=== PATIENT | female | born 1950 | race Caucasian/White ===

== ENCOUNTER → 2017-06-02 | Outpatient (CLI) | payer BC, MEDICARE ==
[~2017-06-02] MED LIST: ASPI81TA85 PO; ESTR0.5T3 TOP; PRIL20CA9 PO
--- NOTE | 2017-06-02 16:02 | REPMRS ---
Patient History The patient states she had a clinical breast exam in 04/14 Family history of unknown cancer in father at age 80 and unknown cancer in mother at age 80. Benign stereotactic core biopsy of the right breast. Taking estrogen for 4 years. Digital Woman Screen Mammo: June 02, 2017 - Exam #: [id number] Bilateral CC and MLO view(s) were taken. Technologist: Lauren Diamond, Technologist Prior study comparison: May 26, 2016, digital woman screen mammo performed at [facility]. May 07, 2015, bilateral digital mammo screening bilat, performed at [facility]. May 04, 2014, bilateral digital mammo screening bilat, performed at [facility]. FINDINGS: There are scattered fibroglandular densities. There is a needle biopsy marker clip in the right breast. There has been no change in the appearance of the mammogram from the prior studies. There is a mild amount of scattered fibroglandular density which is fairly symmetric. There is no interval development of dominant mass, architectural distortion, or clustered microcalcification suggestive of malignancy. ASSESSMENT: BI-RADS/ACR category 1 mammogram. Negative. Recommendation Routine screening mammogram in 1 year (for women over age 40). This mammogram was interpreted with the aid of an FDA-approved computer-aided dectection system. Electronically Signed By: Terry Guevara MD 06/02/17 [id number]
== END ==
LOC: M WHC 13:11
PROVIDERS: ATTEND Physician Assistant
DX: Z12.31 Encounter for screening mammogram for malignant neoplasm of breast (principal); Z80.9 Family history of malignant neoplasm, unspecified; Z92.23 Personal history of estrogen therapy

== ENCOUNTER → 2018-06-06 | Outpatient (CLI) | payer MEDICARE, BC, OTHER | LOC: M RAD 09:14 | DX: Z12.31 Encounter for screening mammogram for malignant neoplasm of breast (principal); M54.2 Cervicalgia; E78.4 Other hyperlipidemia; K21.0 Gastro-esophageal reflux disease with esophagitis; I10 Essential (primary) hypertension; Z92.23 Personal history of estrogen therapy; Z92.89 Personal history of other medical treatment | CPT/HCPCS: 71046 ==

== ENCOUNTER → 2018-06-06 | Outpatient (CLI) | payer MEDICARE, BC, OTHER ==
[2018-06-06 10:11] LABS: BASO % 0.3 % (0.0-1.0); EOS # 0.2 10^3/uL (0.0-0.50); EOS % 3.9 % (0.0-3.0); HEMATOCRIT 40.9 % (36.0-47.0); HEMOGLOBIN 13.3 g/dl (12.0-15.5); IMMATURE GRANULOCYTE % 0.2 % (0-3.0); LYMPH # 1.4 10^3/uL (1.5-4.5); LYMPH % 21.9 % (24.0-44.0); MEAN CORPUSCULAR HEMOGLOBIN 29.6 pg (27.0-33.0); MEAN CORPUSCULAR HGB CONC 32.5 g/dl (32.0-36.5); MEAN CORPUSCULAR VOLUME 91.1 fl (80.0-96.0); MONO # 0.5 10^3/uL (0.0-0.8); MONO % 7.4 % (0.0-5.0); NEUTROPHILS # 4.1 10^3/uL (1.8-7.7); NEUTROPHILS % 66.3 % (36.0-66.0); PLATELET COUNT, AUTOMATED 334 10^3/uL (150-450); RED BLOOD COUNT 4.49 10^6/uL (4.00-5.40); RED CELL DISTRIBUTION WIDTH 12.7 % (11.5-14.5); WHITE BLOOD COUNT 6.2 10^3/uL (4.0-10.0)
[2018-06-06 10:42] LABS: ALBUMIN 4.1 GM/DL (3.2-5.2); ALBUMIN/GLOBULIN RATIO 1.14 (1.00-1.93); ALKALINE PHOSPHATASE 82 U/L (45-117); ALT/SGPT 30 U/L (12-78); ANION GAP 5 MEQ/L (8-16); AST/SGOT 14 U/L (7-37); BILIRUBIN,TOTAL 0.5 MG/DL (0.2-1.0); BLOOD UREA NITROGEN 14 MG/DL (7-18); CALCIUM LEVEL 9.4 MG/DL (8.8-10.2); CARBON DIOXIDE LEVEL 31 MEQ/L (21-32); CHLORIDE LEVEL 106 MEQ/L (98-107); CHOLESTEROL LEVEL 185 MG/DL (<200); CHOLESTEROL RISK RATIO 3.189 (<5); CREATININE FOR GFR 0.58 MG/DL (0.55-1.30); GLOMERULAR FILTRATION RATE > 60.0 (>45); GLUCOSE, FASTING 104 MG/DL (70-100); HDL CHOLESTEROL 58 MG/DL (>40); LDL CHOLESTEROL 108.6 MG/DL (<100); NON-HDL-C 127 MG/DL; POTASSIUM SERUM 4.5 MEQ/L (3.5-5.1); SODIUM LEVEL 142 MEQ/L (136-145); THYROID STIMULATING HORMONE 0.946 uIU/ML (0.358-3.740); TOTAL PROTEIN 7.7 GM/DL (6.4-8.2); TRIGLYCERIDES LEVEL 92 MG/DL (<150)
== END ==
LOC: M LAB 09:42
DX: M54.2 Cervicalgia (principal); E78.4 Other hyperlipidemia; K21.0 Gastro-esophageal reflux disease with esophagitis; I10 Essential (primary) hypertension

== ENCOUNTER → 2019-02-15 | Outpatient (REF) | payer MEDICARE, OTHER ==
[~2019-02-15] MED LIST changes: +MULTTAB25 PO; +OMEP20CA3 PO
[2019-02-15 18:03] LABS: BASO % 0.4 % (0.0-1.0); EOS # 0.3 10^3/uL (0.0-0.50); EOS % 4.2 % (0.0-3.0); HEMATOCRIT 41.1 % (36.0-47.0); HEMOGLOBIN 13.3 g/dl (12.0-15.5); LYMPH # 1.8 10^3/uL (1.5-4.5); LYMPH % 27.1 % (24.0-44.0); MEAN CORPUSCULAR HGB CONC 32.4 g/dl (32.0-36.5); MEAN CORPUSCULAR VOLUME 92.6 fl (80.0-96.0); MONO # 0.6 10^3/uL (0.0-0.8); MONO % 9.1 % (0.0-5.0); NEUTROPHILS % 58.9 % (36.0-66.0); PLATELET COUNT, AUTOMATED 351 10^3/uL (150-450); RED BLOOD COUNT 4.44 10^6/uL (4.00-5.40); WHITE BLOOD COUNT 6.7 10^3/uL (4.0-10.0)
[2019-02-15 18:05] LABS: BLOOD UREA NITROGEN 13 MG/DL (7-18); CALCIUM LEVEL 9.7 MG/DL (8.8-10.2); CARBON DIOXIDE LEVEL 31 MEQ/L (21-32); CHLORIDE LEVEL 107 MEQ/L (98-107); CREATININE FOR GFR 0.64 MG/DL (0.55-1.30); GLOMERULAR FILTRATION RATE > 60.0 (>45); GLUCOSE, FASTING 110 MG/DL (70-100); POTASSIUM SERUM 5.1 MEQ/L (3.5-5.1); SODIUM LEVEL 142 MEQ/L (136-145)
[2019-02-17 11:41] LABS: HEPATITIS C VIRUS ABY INDEX 0.1 INDEX (<0.8)
== END ==
LOC: M LAB REF 16:18
PROVIDERS: ATTEND Family Medicine
DX: Z00.00 Encounter for general adult medical examination without abnormal findings (principal); K21.9 Gastro-esophageal reflux disease without esophagitis; I44.0 Atrioventricular block, first degree; K44.9 Diaphragmatic hernia without obstruction or gangrene

== ENCOUNTER 2019-02-23 12:47 | Day surgery (SDC) | payer MEDICARE, BC, OTHER ==
[~2019-02-23] VITALS: Ht 154.9 cm; Wt 77.1 kg
[~2019-02-23 12:47] MED LIST changes: +BALANCED SALT IRRIGATION SOLUTION 500ML BAG (FOR OR EYE MACHINE) As Ordered ONE; +CEFUROXIME 1MG/0.1ML INTRACAMERAL INJ As Ordered ONE; +DUOVISC (0.50ML VISCOAT/0.55ML PROVISC) OPHTH KIT As Ordered ONE; +LIDOCAINE 0.75%/EPINEPHRINE 0.025% IN BSS 1ML SYR INTRACAMERAL (OR ONLY) As Ordered ONE; +OFLOXACIN 0.3 % (OCUFLOX) OPTH SOL 5ML OS ONE; +PHENYLEPHRINE 2.5% OPHTH SOL 2ML OS ONE; +POVIDONE-IODINE 5% OPHTH PREP SOL 30ML As Ordered ONE; +PROPARACAINE 0.5% OPHTH SOL 15ML OS ONE; +TROPICAMIDE 1% OPHTH SOLN 2ML OS ONE
[2019-02-23] MEDS ORDERED: MIDAZOLAM INJ 2 MG/2 ML VIAL (J2250) As Ordered ONE (13:07)
[2019-02-23] MEDS ORDERED: fentaNYL 100 MCG/2 ML INJECTION (J3010) As Ordered ONE (13:07)
[2019-02-23] MEDS ORDERED: ONDANSETRON 4MG/2ML VIAL (J2405) As Ordered ONE (13:37)
[2019-02-23] MEDS ORDERED: ONDANSETRON 4MG/2ML VIAL (J2405) IV ONE (13:45)
[2019-02-23] MEDS ORDERED: DUOVISC (0.50ML VISCOAT/0.55ML PROVISC) OPHTH KIT As Ordered ONE (14:22)
[2019-02-23 15:35] VITALS: BP 131/57
--- NOTE | 2019-02-24 16:23 | RO ---
DATE OF PROCEDURE: 02/23/2019 PREOPERATIVE DIAGNOSIS: 1. Visually significant nuclear sclerotic cataract left eye. POSTOPERATIVE DIAGNOSIS: 1. Visually significant nuclear sclerotic cataract left eye. PROCEDURE: 1. Cataract extraction with use of phacoemulsification and placement of intraocular lens, AU00T0, 12.5 D, left eye. SURGEON: Bruce Hobbs DO SAMPLE TAILOR: None. ANESTHESIA: Local with monitored anesthesia care (MAC). COMPLICATIONS: None. POSTOPERATIVE CONDITION: Stable. INDICATIONS FOR SURGERY: 1. Blurred vision affecting patients activities of daily living. DESCRIPTION OF PROCEDURE: The patient was seen in the preoperative area and properly identified. The correct operative eye was identified and marked. The patient received topical anesthetic, antibiotics, and topical dilating drops. The patient was then transferred to the operating room. The correct side was re-identified, and a time-out was performed. The eye was prepped and draped in a sterile fashion. The eyelids were isolated with Tegaderm tape, and the lids were held open with an adjustable speculum. A 1.0 mm paracentesis incision was made. Intraocular preservative-free Shugarcaine was then injected into the anterior chamber. Viscoelastic was then injected into the anterior chamber through the paracentesis. Using a 2.4 mm sharp-tipped keratome, the anterior chamber was entered via a temporal clear cornea incision. A continuous curvilinear capsulorrhexis was created with Utrata forceps. Hydrodissection was performed with balanced salt solution (BSS) on a blunt cannula until the nucleus was able to rotate freely. The crystalline lens was phacoemulsified and aspirated. Irrigation/aspiration was used to remove the cortical material. Cohesive viscoelastic was placed into the capsular bag to deepen it. The implant was placed into the capsular bag and allowed to unfold. Placement was confirmed by visualizing the anterior capsulorrhexis. Irrigation/aspiration was used to remove the viscoelastic. The clear corneal incision was hydrated with BSS on a blunt cannula. The lens was well positioned. The incisions were then tested for leaks and found to be negative. The eye was then palpated for appropriate pressure and adjusted accordingly with BSS. The eyelid speculum was then carefully removed. A shield was placed over the eye. The patient tolerated the procedure well and was discharged to the recovery unit in a stable condition. FLETCHER
== END 2019-02-23 15:56 | disposition home or self-care (01) ==
LOC: M SDC 12:47
PROVIDERS: ATTEND Ophthalmology
DX: H25.12 Age-related nuclear cataract, left eye (principal); K21.9 Gastro-esophageal reflux disease without esophagitis; Z88.2 Allergy status to sulfonamides; Z79.899 Other long term (current) drug therapy
CPT/HCPCS: 66984; J2250; J3010; V2632

== ENCOUNTER → 2019-11-07 | Outpatient (REF) | payer MEDICARE, OTHER ==
[~2019-11-07] MED LIST changes: -BALANCED SALT IRRIGATION SOLUTION 500ML BAG (FOR OR EYE MACHINE) As Ordered ONE; -CEFUROXIME 1MG/0.1ML INTRACAMERAL INJ As Ordered ONE; -DUOVISC (0.50ML VISCOAT/0.55ML PROVISC) OPHTH KIT As Ordered ONE; -LIDOCAINE 0.75%/EPINEPHRINE 0.025% IN BSS 1ML SYR INTRACAMERAL (OR ONLY) As Ordered ONE; -OFLOXACIN 0.3 % (OCUFLOX) OPTH SOL 5ML OS ONE; +OMEP-172 PO; -OMEP20CA3 PO; -PHENYLEPHRINE 2.5% OPHTH SOL 2ML OS ONE; -POVIDONE-IODINE 5% OPHTH PREP SOL 30ML As Ordered ONE; -PROPARACAINE 0.5% OPHTH SOL 15ML OS ONE; -TROPICAMIDE 1% OPHTH SOLN 2ML OS ONE
[2019-11-07 13:14] LABS: APPEARANCE, URINE CLEAR (CLEAR); BACTERIA, URINE AUTO 1+ (NEGATIVE); BILIRUBIN, URINE AUTO NEGATIVE (NEGATIVE); BLOOD, URINE BLOOD NEGATIVE (NEGATIVE); COLOR, URINE STRAW (YELLOW); GLUCOSE, URINE (UA) AUTO NEGATIVE (NEGATIVE); KETONE, URINE AUTO NEGATIVE (NEGATIVE); LEUKOCYTE ESTERASE, URINE AUTO NEGATIVE (NEGATIVE); NITRITE, URINE AUTO NEGATIVE (NEGATIVE); PROTEIN, URINE AUTO NEGATIVE (NEGATIVE); RBC, URINE AUTO 0 /HPF (0-3); SPECIFIC GRAVITY URINE AUTO 1.004 (1.002-1.035); SQUAMOUS EPITHELIAL CELL UR AU 0 /HPF (0-6); UROBILINOGEN, URINE AUTO 0.2 mg/dL (0.0-2.0); WBC, URINE AUTO 0 /HPF (0-3)
== END ==
LOC: M SMT 13:02
PROVIDERS: ATTEND Nurse Practitioner Women's Health
DX: N28.89 Other specified disorders of kidney and ureter (principal)
CPT/HCPCS: 81001; 87086; 88108; G0463

== ENCOUNTER → 2019-11-13 | Outpatient (CLI) | payer MEDICARE, BC, OTHER ==
[~2019-11-13] MED LIST changes: +ISOVUE-370 76% 100ML VIAL (Q9967) As Ordered ONE
--- NOTE | 2019-11-14 07:34 | REP ---
CT ABDOMEN AND PELVIS WITH AND WITHOUT IV CONTRAST: CT abdomen and pelvis was performed. CT abdomen was performed without IV contrast. Multiphase post-IV contrast sequences are obtained following the intravenous administration of 100 mL of Isovue-370. Sagittal and coronal reconstruction images are performed. Visualized lung bases demonstrate no significant abnormality. The liver demonstrates no mass. Multiple subcentimeter gall stones are seen in the gallbladder without evidence of gallbladder wall thickening. There is a small hiatal hernia. The spleen is normal in size with no intrinsic abnormality. No mass is seen of either adrenal gland nor of the pancreas. The left kidney is unremarkable. There is a mass in the upper right kidney approximately 4.5 cm in diameter demonstrating heterogenous enhancement. No renal calcifications are seen and there is no hydroureteronephrosis bilaterally. There is no abdominal aortic aneurysm and there is no adenopathy. There is no free air or free fluid Scattered diverticula are seen of the colon without acute diverticulitis. No bowel thickening is seen. No pelvic mass is seen. Urinary bladder is not well distended and not optimally evaluated. No bone lesion is visualized. There are degenerative changes of the spine. IMPRESSION: Mass upper pole right kidney 4.5 cm in diameter. No adenopathy is seen. No other evidence of suspicious mass. Small hiatal hernia. Multiple gallstones in the gallbladder. Scattered diverticula of the colon. Electronically Signed by Jon Coronado MD 11/14/2019 03:59 P
== END ==
LOC: M RAD 15:58
PROVIDERS: ATTEND Nurse Practitioner Women's Health
DX: N28.89 Other specified disorders of kidney and ureter (principal)
CPT/HCPCS: 74178; Q9967

== ENCOUNTER 2020-01-18 05:53 | Inpatient (IN) | payer MEDICARE, BC, OTHER ==
[2020-01-18] VITALS (8 sets, daily range): BP systolic 125–142; BP diastolic 57–73
[~2020-01-18] VITALS: Ht 154.9 cm; Wt 70.7 kg
[~2020-01-18 05:53] MED LIST changes: +CARA1TAB6 PO; +ESTR1CRE VA; -ISOVUE-370 76% 100ML VIAL (Q9967) As Ordered ONE; +LISI-542 PO; -OMEP-172 PO; +OMEP1CAP73 PO
[2020-01-18] MEDS ORDERED: ceFAZolin SOD 2 GM in IV 1 EA IV ONE (06:00)
[2020-01-18] MEDS ORDERED: LR 1,000 ML IV ONE (06:00)
[2020-01-18] MEDS ORDERED: BUPIVACAINE HCL 0.25% 30 ML VIAL As Ordered ONE (07:13)
[2020-01-18] MEDS ORDERED: LIDOCAINE 1% MDV 20ML VIAL As Ordered ONE (07:13)
[2020-01-18] MEDS ORDERED: propofoL 200 MG/20 ML VIAL As Ordered ONE (07:15)
[2020-01-18] MEDS ORDERED: ROCURONIUM BROMIDE 50 MG/5 ML VIAL As Ordered ONE ×2 (07:15→08:23)
[2020-01-18] MEDS ORDERED: ONDANSETRON 4MG/2ML VIAL (J2405) As Ordered ONE (07:15)
[2020-01-18] MEDS ORDERED: dexameTHASONE 4 MG/ML 1ML VIAL (J1100) As Ordered ONE (07:15)
[2020-01-18] MEDS ORDERED: LIDOCAINE 2% INJ 100 MG/5 ML SDV (FOR ANES.) As Ordered ONE (07:15)
[2020-01-18] MEDS ORDERED: fentaNYL 250 MCG/5 ML INJECTION (J3010) As Ordered ONE (07:16)
[2020-01-18] MEDS ORDERED: MIDAZOLAM INJ 2 MG/2 ML VIAL (J2250) As Ordered ONE (07:16)
[2020-01-18] MEDS ORDERED: SCOPOLAMINE 1MG TRANSDERMAL PATCH As Ordered ONE (07:23)
[2020-01-18] MEDS ORDERED: SCOPOLAMINE 1MG TRANSDERMAL PATCH TOP ONE (07:30)
[2020-01-18] MEDS ORDERED: ONDANSETRON 4MG/2ML VIAL (J2405) IV PRN ×2 (07:45→13:00)
[2020-01-18] MEDS ORDERED: ACETAMINOPHEN TAB 650MG DOSE (2X325MG) PO PRN (07:45)
[2020-01-18] MEDS ORDERED: MORPHINE 2 MG/ML 1ML VIAL (J2270) IV PRN (07:45)
[2020-01-18] MEDS ORDERED: PERCOCET 5MG/325MG TAB PO PRN ×2 (07:45→13:00)
[2020-01-18] MEDS ORDERED: METOCLOPRAMIDE INJ 10MG/2ML VIAL (J2765) As Ordered ONE (08:06)
[2020-01-18] MEDS ORDERED: LACRILUBE (AKWA TEARS) OPHTH OINT 3.5 GM As Ordered ONE (08:08)
[2020-01-18] MEDS ORDERED: SUGAMMADEX SODIUM 500 MG/5 ML VIAL (BRIDION) As Ordered ONE (08:19)
[2020-01-18] MEDS ORDERED: ACETAMINOPHEN 1000MG 100ML IV BTL (OFIRMEV) (J0131 PER 10MG) As Ordered ONE (08:20)
[2020-01-18] MEDS ORDERED: MANNITOL 25% 12.5 GM/50 ML VIAL (J2150) As Ordered ONE (08:29)
[2020-01-18] MEDS ORDERED: LABETALOL HCL 100 MG/20 ML VIAL As Ordered ONE (08:33)
[2020-01-18] MEDS ORDERED: KETAMINE HCL 200 MG/20 ML VIAL As Ordered ONE (09:30)
[2020-01-18] MEDS ORDERED: ePHEDrine SULFATE 25 MG/5 ML(5MG/ML) SYRINGE As Ordered ONE (10:43)
[2020-01-18] MEDS ORDERED: PHENYLephrine HCL 500 MCG/5 ML (100MCG/ML) SYRINGE (J2370) As Ordered ONE ×2 (10:43→12:16)
[2020-01-18] MEDS ORDERED: ceFAZolin 2 GM/D5W 50 ML IV BAG (J0690 PER 500MG) As Ordered ONE (12:22)
[2020-01-18] MEDS ORDERED: MEPERIDINE INJ 25 MG/ML VIAL (J2175) IV PRN (13:00)
[2020-01-18] MEDS ORDERED: METOCLOPRAMIDE INJ 10MG/2ML VIAL (J2765) IV PRN (13:00)
[2020-01-18] MEDS ORDERED: LR 1,000 ML IV SCH (13:00)
[2020-01-18] MEDS ORDERED: fentaNYL 100 MCG/2 ML INJECTION (J3010) IV PRN (13:00)
--- NOTE | 2020-01-18 13:42 | ROOPDOC ---
[facility] Report Of Operation Report of Operation DATE OF PROCEDURE: 01/18/20 PREPROCEDURE DIAGNOSES: Right Renal Neoplasm. POSTPROCEDURE DIAGNOSES: Right Renal Neoplasm. PROCEDURE: Right Robotic-assisted Laparoscopic Partial Nephrectomy with Intraoperative Ultrasound for Tumor Mapping. SURGEON: Rach Castillo MD EVENT DECORATOR: Casie Alexander NP ANESTHESIA: General OPERATIVE INDICATIONS: This is a 69 year old female with an approximately 5cm enhancing solid right renal neoplasm concerning for malignancy. She was brought to the operating room today for treatment. DESCRIPTION OF PROCEDURE: The patient was brought to the operating room and general anesthesia was induced. Prophylactic antibiotics were infused. A Pearson catheter was placed under sterile conditions. The patient was then placed in the left lateral decubitus position. All pressure points were appropriately padded and an axillary roll was placed. She was secured to the table with tape. The patient was then prepped and draped in the usual sterile fashion. The initial incision was for an 8mm port in line with the 11th rib along the lateral rectus margin. A Veress needle was then utilized to achieve the pneumoperitoneum. An 8mm port was then placed in through this incision and through which the camera was inserted. There were no injuries from Veress needle placement or initial trocar placement. The remaining ports were then placed under vision. The right hand robotic port was placed along the costal margin in line with the camera port. A 5 mm port was placed just inferior to the xyphoid for access for a liver retractor. Two left robotic ports were placed with one just inferior to the camera port, and the other between the anterior-superior iliac spine and the umbilicus. A 12mm dietary assistant port was placed in between the camera port and the more cephalad left hand robotic port. The robot was then docked. We started by lifting up the liver with a laparoscopic locking Allis clamp. Next the right colon was dissected off of Gerota's fascia. We then Kocherized the duodenum. At this point the inferior vena cava (IVC) was identified. A plane was made onto the lateral aspect of the IVC and this was carried cephalad until the right renal vein was encountered. This was carefully dissected and just inferior to the renal vein, 1 of the 2 right renal arteries was identified. This was carefully dissected. The other melissa al artery was identified a little more inferior and it was also carefully dissected. Next I had our superintendent recreation administer 12.5g of mannitol. Gerota's fascia was then opened and I defatted the kidney. On the upper and posterior aspect of the kidney the tumor was seen. It was partly exophytic. The tumor was then mobilized to aid in accessing the tumor. Ultrasound was then utilized to thony the boundaries of the mass. Next 2 bulldog clamps were placed on the larger renal artery and 1 bulldog clamp was placed on the smaller one. I then began resecting the mass. The mass was resected completely and it appeared that we had a good margin. Once the mass was removed, the renorrhaphy was performed first by ligating all vessels in the base of resection with a 2-0 vicryl suture using figure of eight stitches. The capsule of the kidney was then reapproximated using 0-vicryl suture with Weck clips to cinch down the suture. Once this was done the clamps were removed and hemostasis was excellent. The warm ischemia time was 39 minutes. Next Mary was applied to the resection bed and the tumor was placed in an endocatch bag. A Conrad Muse drain was positioned just medial to the kidney. The liver retractor was then removed and the robot was undocked after confirming hemostasis within the abdomen. The dietary assistant port was then extended at the skin level and then at the fascia. The specimen was then removed in the endocatch bag. The fascia was then closed with a running #0 Vicryl suture. At this point, the abdomen was reinsufflated and we looked back in with the camera and there was no bleeding. At this point, all the incisions were thoroughly irrigated. We then closed the skin of each site using a running #4-0 subcuticular Monocryl stitch. The Conrad Muse drain was secured to the skin using #3-0 Ethilon suture. Local anesthetic was then applied to each incision and Dermabond was then applied and this marked the conclusion of the procedure. The patient was then taken out of the left lateral decubitus position, awakened from anesthesia and transported to the recovery room in stable condition. ESTIMATED BLOOD LOSS: 200mL INTRAOPERATIVE COMPLICATIONS: None SPECIMENS: Right renal neoplasm WARM ISCHEMIA TIME: 39 minutes NORMAL RIGHT RENAL PARENCHYMA SPARED: 90% PLAN: The patient will be admitted to the hospital postoperatively and she will be discharged home once her renal function is stable and she is tolerating a regular diet. RACH CASTILLO MDb 20, 2020 13:42
[2020-01-18] MEDS: PERCOCET 5MG/325MG TAB PO PRN ×3 (14:30→20:27)
[2020-01-18 14:34] LABS: HEMOGLOBIN 12.8 g/dl (12.0-15.5); MEAN CORPUSCULAR HEMOGLOBIN 30.3 pg (27.0-33.0); MEAN CORPUSCULAR HGB CONC 32.8 g/dl (32.0-36.5); MEAN CORPUSCULAR VOLUME 92.2 fl (80.0-96.0); PLATELET COUNT, AUTOMATED 282 10^3/uL (150-450); RED BLOOD COUNT 4.23 10^6/uL (4.00-5.40); WHITE BLOOD COUNT 16.7 10^3/uL (4.0-10.0)
[2020-01-18 14:57] LABS: BLOOD UREA NITROGEN 14 MG/DL (7-18); CALCIUM LEVEL 8.3 MG/DL (8.8-10.2); CARBON DIOXIDE LEVEL 26 MEQ/L (21-32); CHLORIDE LEVEL 107 MEQ/L (98-107); CREATININE FOR GFR 0.79 MG/DL (0.55-1.30); GLOMERULAR FILTRATION RATE > 60.0 (>39); GLUCOSE, FASTING 210 MG/DL (70-100); POTASSIUM SERUM 3.3 MEQ/L (3.5-5.1); SODIUM LEVEL 140 MEQ/L (136-145)
--- NOTE | 2020-01-18 16:30 | CR.PDOC ---
General Date of Consultation: Jan 18, 2020 Consultation REASON FOR CONSULTATION/CHIEF COMPLAINT: Bradycardia HISTORY OF PRESENT ILLNESS: Patient 69 years old female with past medical history of right nephrectomy, hypertension, acid reflux was admitted to the hospital for right nephrectomy secondary to right renal mass. During anesthesia patient developed elevated blood pressure 180/90, patient was given labetalol 5 mg IV 2 times, blood pressure dropped to 130/80, heart rate decreased to 48- 50 bpm. In the recovery room patient was complaining on the epigastric discomfort. She denied chest pain, palpitations, fever, chills. During my interview patient's heart rate was around 75-80, patient was normotensive. ALLERGIES: Please see below. HOME MEDICATIONS: Please see below. PAST MEDICAL HISTORY: Hypertension, Acid reflux PAST SURGICAL HISTORY: Right nephrectomy, appendectomy, ovarian cyst, hysterectomy, cataract surgery FAMILY HISTORY: Family history significant for multiple myeloma, Alzheimer's diseases, diabetes SOCIAL HISTORY: Tobacco use: Denied ETOH: Denied Illicit drug use: Denied IV drug use: Denied REVIEW OF SYSTEMS: 10 point review system negative except as above PHYSICAL EXAMINATION: VITAL SIGNS: Please see below. GENERAL APPEARANCE: Well-nourished, well-developed, not in apparent distress HEENT: Normocephalic, atraumatic. Mucous members moist and pink CARDIOVASCULAR: Regular rate and rhythm. No murmurs, rubs or gallops. Radial pulses are intact. There is no lower extremity edema LUNGS: Diminished lung sounds ABDOMEN: Abdomen is soft, tender in the right part of the abdomen, no rigidity MUSCULOSKELETAL: Range of motion is intact in all 4 extremities NEUROLOGICAL: Cranial nerves II-12 are grossly intact. Speech is not dysarthric LABORATORY DATA: Please see below. ASSESSMENT/PLAN: Patient 69 years old female with past medical history of right nephrectomy, hypertension, acid reflux was admitted to the hospital for right nephrectomy secondary to right renal mass. During anesthesia patient developed elevated blood pressure 180/90, patient was given labetalol 5 mg IV 2 times, blood pressure dropped to 130/80, heart rate decreased to 48- 50 bpm. In the recovery room patient was complaining on the epigastric discomfort. She denied chest pain, palpitations, fever, chills. Bradycardia Most likely secondary to labetalol which patient received during anesthesia Will check echo given history of aortic stenosis We will check troponin Status post nephrectomy Follows by urology team Acid reflux PPI Hypertension Continue home meds Vital Signs/I&O Vital Signs Date Time Temp Pulse Resp B/P (MAP) Pulse Ox O2 Delivery O2 Flow Rate FiO2 01/18/20 16:00 16 01/18/20 15:30 74 131/61 (84) 100 Nasal Cannula 2 01/18/20 13:51 96.3 Laboratory Data Labs 24H Laboratory Tests 2 01/18/20 14:20: Nucleated Red Blood Cells % (auto) 0.0, Anion Gap 7L, Glomerular Filtration Rate > 60.0, Calcium Level 8.3L CBC/BMP Laboratory Tests 01/18/20 14:20 Allergies Coded Allergies: Sulfa (Sulfonamide Antibiotics) (Verified Allergy, Unknown, 01/18/20) Home Medications Scheduled Estradiol (Estrace) 42.5 Gm Cream.appl, 0.1 MG VA 2xweek, (Reported) Lisinopril (Lisinopril) 5 Mg Tablet, 5 MG PO DAILY, (Reported) Omeprazole (Omeprazole) 20 Mg Cap, 20 MG PO DAILY, (Reported) Sucralfate (Carafate) 1 Gm Tablet, 1 GM PO BID, #40 (Reported) 4 times per day take on an empty stomach CATHERINE KEENE DO Jan 18, 2020 16:30
[2020-01-18] MEDS: SUCRALFATE 1 GM TAB PO SCH ×2 (16:49→19:18)
[2020-01-18] MEDS: DOCUSATE SODIUM 100 MG CAP PO SCH ×2 (16:49→20:26)
[2020-01-18] MEDS: NS 1,000 ML IV SCH (17:40)
[2020-01-18] MEDS: ceFAZolin SOD 1 GM in D5W MINI-BAG PLUS 50 ML IV SCH ×2 (17:40→23:08)
[2020-01-18] MEDS: lisinopriL 5 MG TAB PO SCH (20:27)
--- NOTE | 2020-01-18 22:30 | ECGEPIP ---
[facility] Test Date: 2020-01-18 Pat Name: DYLON CEVALLOS Department: Room: - Gender: Female Bilingual Medical Assistant: GONSALO : 1950 Requested By: Osmani Talley Order Number: [id number] Reading MD: Ousmane Lee Measurements Intervals [place] Rate: 51 P: 61 NV: 197 QRS: 10 QRSD: 98 T: 0 QT: 456 QTc: 420 Interpretive Statements SINUS BRADYCARDIA WITH SINUS ARRHYTHMIA Nonspecific ST-T abnormalities. Electronically Signed on 01-18-2020 22:30:35 EST by Ousmane Lee
[2020-01-19] VITALS (8 sets, daily range): BP systolic 100–130; BP diastolic 37–72; O2SAT 98
[2020-01-19 07:24] LABS: HEMATOCRIT 31.9 % (36.0-47.0); MEAN CORPUSCULAR HEMOGLOBIN 30.1 pg (27.0-33.0); MEAN CORPUSCULAR HGB CONC 32.6 g/dl (32.0-36.5); MEAN CORPUSCULAR VOLUME 92.2 fl (80.0-96.0); PLATELET COUNT, AUTOMATED 291 10^3/uL (150-450); RED BLOOD COUNT 3.46 10^6/uL (4.00-5.40); WHITE BLOOD COUNT 14.9 10^3/uL (4.0-10.0)
[2020-01-19] MEDS: NS 1,000 ML IV SCH (07:27)
[2020-01-19 07:30] LABS: HEMOGLOBIN 10.4 g/dl (12.0-15.5)
[2020-01-19 07:55] LABS: BLOOD UREA NITROGEN 14 MG/DL (7-18); CALCIUM LEVEL 8.2 MG/DL (8.8-10.2); CARBON DIOXIDE LEVEL 28 MEQ/L (21-32); CHLORIDE LEVEL 107 MEQ/L (98-107); CREATININE FOR GFR 0.72 MG/DL (0.55-1.30); GLOMERULAR FILTRATION RATE > 60.0 (>39); GLUCOSE, FASTING 115 MG/DL (70-100); POTASSIUM SERUM 3.6 MEQ/L (3.5-5.1); SODIUM LEVEL 138 MEQ/L (136-145)
--- NOTE | 2020-01-19 07:55 | IPNPDOC ---
Subjective Review oF Systems Chief Complaint The patient is a 69-year-old female admitted with a reason for visit of Renal Mass. Events since Last Encounter No acute events o/n. Good pain control. No n/v. No chest pain or SOB. No f/c/ns. Objective Physical Examination General Exam: Alert, Cooperative, No Acute Distress ABDOMEN EXAM: Soft, Tenderness (mild), Other (incisions clean/dry/intact; LUCIUS w/ serosang output) Neuro Exam: Normal Speech Psych Exam: Mental status NL, Mood NL Other physical findings catheter draining clear urine Vital Signs/I&O Vital Signs Date Time Temp Pulse Resp B/P (MAP) Pulse Ox O2 Delivery O2 Flow Rate FiO2 01/19/20 06:00 97.6 63 18 100/37 (58) 93 Room Air 01/18/20 17:30 2.0 I&O- Last 24 Hours up to 6 AM 01/19/20 06:00 Intake Total 3022 ml Output Total 2305 ml Balance 717 ml Laboratory Data Labs 24H Laboratory Tests 2 01/18/20 14:20: Nucleated Red Blood Cells % (auto) 0.0, Anion Gap 7L, Glomerular Filtration Rate > 60.0, Calcium Level 8.3L 01/18/20 17:15: Troponin I < 0.02 01/19/20 07:00: Nucleated Red Blood Cells % (auto) 0.0 CBC/BMP Laboratory Tests 01/18/20 14:20 01/19/20 07:00 Assessment/Plan Date Seen The patient was seen on 01/19/20. Patient Summary This is a 69 y/o F POD1 s/p R robotic partial nephrectomy. Hb 10.4. BMP still pending. Patient became bradycardic in the PACU yesterday. Hospitalist service is following for this. All vitals since she has been on the regular nursing floor have been stable. Good UOP. Plan/VTE VTE Prophylaxis Ordered?: Yes VTE Exclusion Mechanical Proph: N/A:VTE Prophy Ordered Plan/Urinary Catheter Urinary Catheter: D/C Pearson Plan - d/c Pearson - percocet prn pain - d/c IVF - strict I/Os - SCDs when in bed - ambulate w/ assistance - appreciate hospitalist service following for brachycardia in PACU - advance diet as tolerated - will likely need to stay at least one more day for cardiac monitoring and to watch her Hb as it dropped some from postop RACH CASTILLO MD Jan 19, 2020 07:55
[2020-01-19] MEDS: DOCUSATE SODIUM 100 MG CAP PO SCH ×2 (09:12→21:45)
[2020-01-19] MEDS: SUCRALFATE 1 GM TAB PO SCH ×2 (09:12→18:52)
[2020-01-19] MEDS: OMEPRAZOLE 20 MG CAP PO SCH (09:12)
--- NOTE | 2020-01-19 13:03 | IPNPDOC ---
Text Note Date of Service The patient was seen on 01/19/20. NOTE Subjective: No any acute events overnight. No any arrhythmia on telemetry. Ivan jeromeeddy denied any chest pain, palpitations, shortness of breath, diarrhea. Objective: VITAL SIGNS: Please see below. GENERAL APPEARANCE: Well-nourished, well-developed, not in apparent distress HEENT: Normocephalic, atraumatic. Mucous members moist and pink CARDIOVASCULAR: Regular rate and rhythm. No murmurs, rubs or gallops. Radial pulses are intact. There is no lower extremity edema LUNGS: Diminished lung sounds ABDOMEN: Abdomen is soft, tender in the right part of the abdomen, no rigidity MUSCULOSKELETAL: Range of motion is intact in all 4 extremities NEUROLOGICAL: Cranial nerves II-12 are grossly intact. Speech is not dysarthric ASSESSMENT/PLAN: Patient 69 years old female with past medical history of right nephrectomy, hypertension, acid reflux was admitted to the hospital for right nephrectomy secondary to right renal mass. During anesthesia patient developed elevated blood pressure 180/90, patient was given labetalol 5 mg IV 2 times, blood pressure dropped to 130/80, heart rate decreased to 48- 50 bpm. In the recovery room patient was complaining on the epigastric discomfort. She denied chest pain, palpitations, fever, chills. Bradycardia Resolved Most likely secondary to labetalol which patient received during anesthesia echo pending Troponin negative Repeated EKG showed no any acute ischemic changes Status post nephrectomy Follows by urology team Alex ORTEZ, I+O VSAlex I+O Laboratory Tests 01/18/20 14:20 01/19/20 07:00 Vital Signs Date Time Temp Pulse Resp B/P (MAP) Pulse Ox O2 Delivery O2 Flow Rate FiO2 01/19/20 11:53 98.1 61 18 119/62 (81) 97 Room Air 01/18/20 17:30 2.0 I&O- Last 24 Hours up to 6 AM 01/19/20 06:00 Intake Total 3022 ml Output Total 2305 ml Balance 717 ml CATHERINE KEENE DO Jan 19, 2020 13:03
[2020-01-19] MEDS ORDERED: DOCU100C16 PO (15:43)
[2020-01-19] MEDS ORDERED: PERCOCET PO (15:43)
[2020-01-19 16:13] LABS: HEMATOCRIT 32.8 % (36.0-47.0); HEMOGLOBIN 10.7 g/dl (12.0-15.5); MEAN CORPUSCULAR HEMOGLOBIN 30.3 pg (27.0-33.0); MEAN CORPUSCULAR HGB CONC 32.6 g/dl (32.0-36.5); MEAN CORPUSCULAR VOLUME 92.9 fl (80.0-96.0); PLATELET COUNT, AUTOMATED 287 10^3/uL (150-450); RED BLOOD COUNT 3.53 10^6/uL (4.00-5.40); WHITE BLOOD COUNT 13.4 10^3/uL (4.0-10.0)
[2020-01-19] MEDS: PERCOCET 5MG/325MG TAB PO PRN (18:53)
[2020-01-19] MEDS: lisinopriL 5 MG TAB PO SCH (21:47)
[2020-01-20] VITALS (10 sets, daily range): BP systolic 106–176; BP diastolic 64–96; O2SAT 94–96
[2020-01-20 06:53] LABS: HEMATOCRIT 35.4 % (36.0-47.0); HEMOGLOBIN 11.7 g/dl (12.0-15.5); MEAN CORPUSCULAR HEMOGLOBIN 30.5 pg (27.0-33.0); MEAN CORPUSCULAR HGB CONC 33.1 g/dl (32.0-36.5); MEAN CORPUSCULAR VOLUME 92.2 fl (80.0-96.0); PLATELET COUNT, AUTOMATED 298 10^3/uL (150-450); RED BLOOD COUNT 3.84 10^6/uL (4.00-5.40); WHITE BLOOD COUNT 16.6 10^3/uL (4.0-10.0)
[2020-01-20 07:17] LABS: BLOOD UREA NITROGEN 12 MG/DL (7-18); CALCIUM LEVEL 8.5 MG/DL (8.8-10.2); CARBON DIOXIDE LEVEL 28 MEQ/L (21-32); CHLORIDE LEVEL 108 MEQ/L (98-107); CREATININE FOR GFR 0.59 MG/DL (0.55-1.30); GLOMERULAR FILTRATION RATE > 60.0 (>39); GLUCOSE, FASTING 120 MG/DL (70-100); POTASSIUM SERUM 3.8 MEQ/L (3.5-5.1); SODIUM LEVEL 141 MEQ/L (136-145)
[2020-01-20] MEDS: SUCRALFATE 1 GM TAB PO SCH ×2 (07:30→17:59)
--- NOTE | 2020-01-20 09:19 | IPNPDOC ---
Subjective Review oF Systems Chief Complaint The patient is a 69-year-old female admitted with a reason for visit of Renal Mass. Events since Last Encounter The patient has vomited twice overnight. Presently she is feeling some better but is not hungry Tmax overnight was 100.8 LUCIUS drain output not measured yet this am, has large amount of bloody fluid in bulb LUCIUS drain last two days was 230cc and 120 cc, not yet ready to remove it Exam: alert female in bed in no distress Abd is soft not distended, not tender. Objective Physical Examination General Exam: Alert, Cooperative, No Acute Distress ABDOMEN EXAM: Soft, Other (incisions clean/dry/intact; LUCIUS w/ serosang output); No: Tenderness (mild) Neuro Exam: Normal Speech Psych Exam: Mental status NL, Mood NL Vital Signs/I&O Vital Signs Date Time Temp Pulse Resp B/P (MAP) Pulse Ox O2 Delivery O2 Flow Rate FiO2 01/20/20 06:00 99.5 93 19 176/89 (118) 94 Room Air 01/18/20 17:30 2.0 I&O- Last 24 Hours up to 6 AM 01/20/20 06:00 Intake Total 1315 ml Output Total 1170 ml Balance 145 ml Laboratory Data Labs 24H Laboratory Tests 2 01/19/20 15:58: Nucleated Red Blood Cells % (auto) 0.0 01/20/20 06:11: Nucleated Red Blood Cells % (auto) 0.0, Anion Gap 5L, Glomerular Filtration Rate > 60.0, Calcium Level 8.5L CBC/BMP Laboratory Tests 01/19/20 15:58 01/20/20 06:11 Assessment/Plan Date Seen The patient was seen on 01/20/20. Plan/VTE VTE Prophylaxis Ordered?: Yes VTE Exclusion Mechanical Proph: N/A:VTE Prophy Ordered Plan/Urinary Catheter Urinary Catheter: D/C Pearson Plan 1. Check LUCIUS output 2. Check CBC 3. Will observe today, possibly discharge later this afternoon MARYANNE MORRIS MD Jan 20, 2020 09:19
[2020-01-20] MEDS: OMEPRAZOLE 20 MG CAP PO SCH (09:28)
[2020-01-20] MEDS: DOCUSATE SODIUM 100 MG CAP PO SCH ×2 (09:28→20:38)
[2020-01-20] MEDS ORDERED: PROMETHAZINE INJ 25 MG/ML VIAL (J2550) IV ONE (14:00)
--- NOTE | 2020-01-20 14:10 | ECHO ---
DATE OF PROCEDURE: 01/19/2020 DATE OF : 1950 AGE: 69 REFERRING PROVIDER: Dr. Miguel A Rosario PATIENT LOCATION: Room 4214 REASON FOR THE ECHOCARDIOGRAM: Abnormal electrocardiogram (EKG). 2D MEASUREMENTS: IVS: 1.0 cm LV: 3.4 cm LVPW: 1.0 cm LA: 3.6 cm Aorta: 2.8 cm RV: 2.9 cm IVC: 1.7 cm DOPPLER MEASUREMENTS: Peak velocity across the aortic valve: 1.6 m/s Peak velocity across the LVOT: 1.1 m/s Peak gradient across the aortic valve: 10 mmHg Mean gradient across the aortic valve: 5 mmHg Mitral E: 0.74, Mitral A: 0.99 with a ratio of 0.7 Maximum tricuspid valve velocity: 2.2 m/s 2D COMMENTS: 1. Normal left ventricular size, wall thickness and normal global left ventricular systolic function. The estimated left ventricular systolic ejection fraction is 65-70%. 2. Normal left atrium. Normal right atrium and right ventricle. 3. The atrial septum appeared to be normal without evidence of defect or shunt. 4. Normal aortic root. 5. Small pericardial effusion was noted, no evidence of cardiac tamponade. 6. Moderately calcified aortic valve with normal leaflet excursion. Mildly calcified mitral annulus with normal appearing mitral valve leaflet motion. Normal tricuspid valve and pulmonic valve. The proximal pulmonary artery branches all appeared to be normal. 7. The inferior vena cava was normal in size. Central venous pressure is most likely normal. DOPPLER: It detects trace to mild aortic regurgitation. The calculated pulmonary artery systolic pressure was normal. IMPRESSION: 1. Normal global left ventricular systolic function. There are features of left ventricular diastolic dysfunction manifested by abnormal relaxation, grade 1. 2. Aortic valve sclerosis with trivial aortic stenosis but no aortic regurgitation. 3. Mitral annulus calcification. 4. Trace to mild tricuspid regurgitation with a normal calculated pulmonary artery systolic pressure. 5. Small pericardial effusion was noted. No evidence of cardiac tamponade. [facility]
[2020-01-20] MEDS: lisinopriL 5 MG TAB PO SCH (20:53)
--- NOTE | 2020-01-20 22:13 | REPVR ---
PROCEDURE INFORMATION: Exam: XR Chest, 2 Views Exam date and time: 01/20/2020 10:00 PM Age: 69 years old Clinical indication: Fever; Additional info: Fevers TECHNIQUE: Imaging protocol: XR of the chest Views: 2 views. COMPARISON: CR Chest, 2 view PA, Lat 06/06/2018 10:04 AM FINDINGS: Lungs: Atelectasis left lower lobe. Pleural space: Unremarkable. No pleural effusion. No pneumothorax. Heart/Mediastinum: Unremarkable. No cardiomegaly. Bones/joints: Unremarkable. Soft tissues: Subcutaneous air demonstrated in the right axillary and supraclavicular fossa region. Other findings: Pneumoperitoneum with air demonstrated beneath the right hemidiaphragm. IMPRESSION: 1. Pneumoperitoneum with air demonstrated beneath the right hemidiaphragm. 2. Subcutaneous air demonstrated in the right axillary and supraclavicular fossa region. Electronically signed by: Yaw Nava On 01/20/2020 22:12:45 PM
--- NOTE | 2020-01-20 22:40 | IPNPDOC ---
Text Note Date of Service The patient was seen on 01/20/20. NOTE I was called to assess Ms. Valderrama for increased nausea and fatigue. She is s/p robotic right partial nephrectomy. She says that she continues to be nauseated, but denies abdominal pain. She has not has very good PO intake since her surgery due to nausea. She denies abdominal pain, but does have a dry cough. On physical exam, she is mildly tachycardic in the low 100s, and her lung sounds are clear. There is borgborygmi heard in her abdomen and her belly is nontender. Plan: Lactic acid not elevated. CXR shows some air under the diaphragm on the right, which is the site of her surgery. This is not uncommon because the surgery was robotic. If she develops abdominal pain, may CT her AB/Pelvis without contrast. Blood cultures x2. UA with UC. Empiric coverage with Unasyn. Added Reglan for nausea. Zofran barely helps and she hallucinated with phenergan. VS,Fishbone, I+O VS, Fishbone, I+O Laboratory Tests 01/20/20 06:11 Vital Signs Date Time Temp Pulse Resp B/P (MAP) Pulse Ox O2 Delivery O2 Flow Rate FiO2 01/20/20 20:53 102/61 01/20/20 18:00 99.3 115 22 96 Room Air 01/18/20 17:30 2.0 I&O- Last 24 Hours up to 6 AM 01/20/20 06:00 Intake Total 1315 ml Output Total 1170 ml Balance 145 ml GME ATTESTATION GME ATTESTATION My faculty preceptor for this patient encounter was physically present during the encounter and was fully available. All aspects of the patient interview, examination, medical decision making process, and medical care plan development were reviewed and approved by the faculty preceptor. The faculty preceptor is aware and concurs with the plan as stated in the body of this note and will attest to such by his/her cosignature. ATTENDING NOTE I have interviewed and examined the patient at the bedside, and agree with the physical findings, assessment, and management plan as documented above. DAVE YUSUF D.O. Jan 20, 2020 22:40 GABBY CORTEZ MD Jan 21, 2020 20:16
[2020-01-20] MEDS ORDERED: METOCLOPRAMIDE INJ 10MG/2ML VIAL (J2765) IV PRN (22:45)
[2020-01-20] MEDS ORDERED: NS 1,000 ML IV ONE (23:00)
[2020-01-20] MEDS: AMPICILLIN SOD/SULBACTAM SOD 3 GM in D5W MINI-BAG PLUS 100 ML IV SCH (23:15)
[2020-01-21 02:00] VITALS: BP 130/68
[2020-01-21] MEDS: AMPICILLIN SOD/SULBACTAM SOD 3 GM in D5W MINI-BAG PLUS 100 ML IV SCH ×4 (04:32→22:31)
[2020-01-21 06:00] VITALS: BP 131/66
[2020-01-21 06:59] LABS: HEMATOCRIT 32.9 % (36.0-47.0); HEMOGLOBIN 10.5 g/dl (12.0-15.5); MEAN CORPUSCULAR HEMOGLOBIN 29.7 pg (27.0-33.0); MEAN CORPUSCULAR HGB CONC 31.9 g/dl (32.0-36.5); MEAN CORPUSCULAR VOLUME 92.9 fl (80.0-96.0); PLATELET COUNT, AUTOMATED 279 10^3/uL (150-450); RED BLOOD COUNT 3.54 10^6/uL (4.00-5.40); WHITE BLOOD COUNT 12.8 10^3/uL (4.0-10.0)
[2020-01-21 07:24] LABS: BLOOD UREA NITROGEN 16 MG/DL (7-18); CALCIUM LEVEL 7.8 MG/DL (8.8-10.2); CARBON DIOXIDE LEVEL 27 MEQ/L (21-32); CHLORIDE LEVEL 108 MEQ/L (98-107); CREATININE FOR GFR 0.61 MG/DL (0.55-1.30); GLOMERULAR FILTRATION RATE > 60.0 (>39); GLUCOSE, FASTING 100 MG/DL (70-100); POTASSIUM SERUM 3.5 MEQ/L (3.5-5.1); SODIUM LEVEL 140 MEQ/L (136-145)
[2020-01-21] MEDS: OMEPRAZOLE 20 MG CAP PO SCH (08:31)
[2020-01-21] MEDS: SUCRALFATE 1 GM TAB PO SCH ×2 (08:31→17:51)
--- NOTE | 2020-01-21 08:57 | IPNPDOC ---
Subjective Review oF Systems Chief Complaint The patient is a 69-year-old female admitted with a reason for visit of Renal Mass. Events since Last Encounter Yesterday the patient had nausea and vomiting without relief from Zofran. She was given a dose of Phenergan and had changes in mental status. She was seen in consultation and evaluated by the hospitalist. She is presently feeling better and only experiences nausea after she takes po. Vital signs this am reveal Temp 99.3, Puluse is 75, BP is 131/66. LUCIUS output last 24 hours is 190 cc AM labs: hgb/hct is 10.5/32.9 WBC is 12, 800 creatinine is 0.61, BUN is 16. Objective Physical Examination General Exam: Alert, Cooperative, No Acute Distress ABDOMEN EXAM: Soft, Other (incisions clean/dry/intact; LUCIUS w/ serosang output); No: Tenderness (mild), Mass Neuro Exam: Normal Speech Psych Exam: Mental status NL, Mood NL Vital Signs/I&O Vital Signs Date Time Temp Pulse Resp B/P (MAP) Pulse Ox O2 Delivery O2 Flow Rate FiO2 01/21/20 06:00 99.3 75 18 131/66 (87) 94 Room Air 01/18/20 17:30 2.0 I&O- Last 24 Hours up to 6 AM 01/21/20 06:00 Intake Total 1980 ml Output Total 590 ml Balance 1390 ml Laboratory Data Labs 24H Laboratory Tests 2 01/20/20 20:48: Lactic Acid Level 1.2 01/21/20 06:27: Nucleated Red Blood Cells % (auto) 0.0, Anion Gap 5L, Glomerular Filtration Rate > 60.0, Calcium Level 7.8L CBC/BMP Laboratory Tests 01/21/20 06:27 Microbiology Microbiology 01/20/20 Blood Culture, Received Pending 01/20/20 Blood Culture, Received Pending Assessment/Plan Date Seen The patient was seen on 01/21/20. Patient Summary Impression: 1. Post op day 3 robotic partial nephrectomy, complicated by nausea and vomiting 2. Adverse reaction to phenergan 3. Large LUCIUS drain output Plan/VTE VTE Prophylaxis Ordered?: Yes VTE Exclusion Mechanical Proph: N/A:VTE Prophy Ordered Plan/Urinary Catheter Urinary Catheter: D/C Pearson Plan 1. Evaluation by hospitalist greatly appreciated 2. Will continue observation today 3. Will not remove LUCIUS drain yet in view of large output 4. Will consider performing CT scan if she fails to progress 5. I discussed the plan with the patient MARYANNE MORRIS MD Jan 21, 2020 08:57
[2020-01-21] MEDS: DOCUSATE SODIUM 100 MG CAP PO SCH ×2 (09:00→21:00)
[2020-01-21 10:00] VITALS: BP 138/79
[2020-01-21 18:00] VITALS: BP 121/85
[2020-01-21] MEDS: lisinopriL 5 MG TAB PO SCH (21:14)
[2020-01-21 21:53] VITALS: BP 130/66
[2020-01-21 23:07] VITALS: O2SAT 96
[2020-01-22] VITALS (7 sets, daily range): BP systolic 130–143; BP diastolic 67–87
[2020-01-22] MEDS: AMPICILLIN SOD/SULBACTAM SOD 3 GM in D5W MINI-BAG PLUS 100 ML IV SCH (04:59)
[2020-01-22 06:30] LABS: HEMATOCRIT 32.6 % (36.0-47.0); HEMOGLOBIN 10.9 g/dl (12.0-15.5); MEAN CORPUSCULAR HEMOGLOBIN 30.4 pg (27.0-33.0); MEAN CORPUSCULAR HGB CONC 33.4 g/dl (32.0-36.5); MEAN CORPUSCULAR VOLUME 90.8 fl (80.0-96.0); PLATELET COUNT, AUTOMATED 323 10^3/uL (150-450); RED BLOOD COUNT 3.59 10^6/uL (4.00-5.40); WHITE BLOOD COUNT 12.8 10^3/uL (4.0-10.0)
[2020-01-22 06:59] LABS: BLOOD UREA NITROGEN 13 MG/DL (7-18); CALCIUM LEVEL 8.7 MG/DL (8.8-10.2); CARBON DIOXIDE LEVEL 27 MEQ/L (21-32); CHLORIDE LEVEL 106 MEQ/L (98-107); CREATININE FOR GFR 0.63 MG/DL (0.55-1.30); GLOMERULAR FILTRATION RATE > 60.0 (>39); GLUCOSE, FASTING 114 MG/DL (70-100); POTASSIUM SERUM 3.3 MEQ/L (3.5-5.1); SODIUM LEVEL 138 MEQ/L (136-145)
--- NOTE | 2020-01-22 07:38 | IPNPDOC ---
Subjective Review oF Systems Chief Complaint The patient is a 69-year-old female admitted with a reason for visit of Renal Mass. Events since Last Encounter No acute events o/n. Patient notes nausea is improved. Still having diarrhea. Notes poor appetite. Minimal abdominal pain. No f/c/ns. Objective Physical Examination General Exam: Alert, Cooperative, No Acute Distress ABDOMEN EXAM: Soft, Other (incisions clean/dry/intact; LUCIUS w/ serosang output); No: Tenderness (mild), Mass Skin Exam: Nl turgor and temperature Neuro Exam: Normal Speech Psych Exam: Mental status NL, Mood NL Vital Signs/I&O Vital Signs Date Time Temp Pulse Resp B/P (MAP) Pulse Ox O2 Delivery O2 Flow Rate FiO2 01/22/20 06:00 98.0 86 18 130/68 (88) 94 Room Air 01/18/20 17:30 2.0 I&O- Last 24 Hours up to 6 AM 01/22/20 05:59 Intake Total 1270 ml Output Total 730 ml Balance 540 ml Laboratory Data Labs 24H Laboratory Tests 2 01/22/20 06:11: Nucleated Red Blood Cells % (auto) 0.0, Anion Gap 5L, Glomerular Filtration Rate > 60.0, Calcium Level 8.7L CBC/BMP Laboratory Tests 01/22/20 06:11 Microbiology Microbiology 01/20/20 Blood Culture - Preliminary, Resulted No growth after 24 hours . All specim... 01/20/20 Blood Culture - Preliminary, Resulted No growth after 24 hours . All specim... Assessment/Plan Date Seen The patient was seen on 01/22/20. Patient Summary This is a 69 y/o F POD4 s/p R robotic partial nephrectomy. Postop course complicated by nausea/vomiting (improved) and persistent diarrhea. No fevers. No abd pain. Orders placed to check for C dif. Unasyn stopped. Her LUCIUS output has been relatively high. Will send fluid off for Cr. Plan/VTE VTE Prophylaxis Ordered?: Yes VTE Exclusion Mechanical Proph: N/A:VTE Prophy Ordered Plan - send stool for C dif - check LUCIUS fluid Cr - stop unasyn - percocet prn pain - ambulate - SCDs when in bed - NPO for now in case LUCIUS Cr is high - patient may need to have a ureteral stent placed RACH CASTILLO MD Jan 22, 2020 07:37
[2020-01-22] MEDS ORDERED: KCL 40MEQ IN D5/0.45NS 1000ML 1,000 ML IV SCH (08:00)
[2020-01-22] MEDS: DOCUSATE SODIUM 100 MG CAP PO SCH ×2 (08:20→20:49)
[2020-01-22] MEDS: OMEPRAZOLE 20 MG CAP PO SCH (08:26)
[2020-01-22] MEDS: SUCRALFATE 1 GM TAB PO SCH ×2 (08:26→17:02)
[2020-01-22 09:33] LABS: CREATININE BF 0.5 MG/DL (NOT ESTABLISHED); SOURCE, BODY FLUID CREATININE PERITONEAL
[2020-01-22 09:41] LABS: CLOSTRIDIUM DIFFICILE PCR NEGATIVE (NEGATIVE)
--- NOTE | 2020-01-22 16:49 | IPNPDOC ---
Text Note Date of Service The patient was seen on 01/22/20. NOTE Subjective: Urology contacted us again to evaluate this patient who is status post robotic partial nephrectomy and is currently having increased drainage from the LUCIUS drain along with that. Continues to have persistent diarrhea. Objective: GENERAL APPEARANCE: Well-nourished, well-developed, not in apparent distress HEENT: Normocephalic, atraumatic. Mucous members moist and pink CARDIOVASCULAR: Regular rate and rhythm. No murmurs, rubs or gallops. Radial pulses are intact. There is no lower extremity edema LUNGS: Diminished lung sounds ABDOMEN: Abdomen is soft, tender in the right part of the abdomen, no rigidity, JVD and is in place MUSCULOSKELETAL: Range of motion is intact in all 4 extremities NEUROLOGICAL: Cranial nerves II-12 are grossly intact. Speech is not dysarthric ASSESSMENT/PLAN: Patient 69 years old female with past medical history of right nephrectomy, hypertension, acid reflux was admitted to the hospital for right nephrectomy secondary to right renal mass and is status post post operative day 4. Initially we were consulted for bradycardia, which is likely related to labetalol. This time, they have increased output was for persistent diarrhea. C. difficile was sent, and this diarrhea could have been because of antibiotics for which the antibiotics have been stopped today. 1. Renal mass, status post partial nephrectomy. Management as per neurology 2. Diarrhea. This could be likely secondary to antibiotic associated diarrhea. We will start the patient on some probiotics. C. difficile also has been ordered. We will continue to follow, and if required. C. difficile PCR will be sent as well. Fecal leukocytes and ova and parasites will be sent also. 3. High output from the LUCIUS drain. Follow up with urology. They have sent back to new creatinine today to rule out any urinary leak. Rest, activity, pain control and diet as per urology The hospitalist team will continue to follow VS,Fishbone, I+O VS, Fishbone, I+O Laboratory Tests 01/22/20 06:11 Vital Signs Date Time Temp Pulse Resp B/P (MAP) Pulse Ox O2 Delivery O2 Flow Rate FiO2 01/22/20 14:00 99.1 80 18 136/85 (102) 97 Room Air 01/18/20 17:30 2.0 I&O- Last 24 Hours up to 6 AM 01/22/20 05:59 Intake Total 1270 ml Output Total 730 ml Balance 540 ml SAMANTHA KHANNA MD Jan 22, 2020 16:49
[2020-01-22] MEDS: LACTOBACILLUS ACIDOPHILUS CAP (BACID) PO SCH (17:02)
[2020-01-22] MEDS: lisinopriL 5 MG TAB PO SCH (20:49)
[2020-01-23 02:00] VITALS: BP 139/69
[2020-01-23 06:00] VITALS: BP 138/71
[2020-01-23 06:38] LABS: HEMATOCRIT 29.8 % (36.0-47.0); HEMOGLOBIN 9.9 g/dl (12.0-15.5); MEAN CORPUSCULAR HEMOGLOBIN 30.1 pg (27.0-33.0); MEAN CORPUSCULAR HGB CONC 33.2 g/dl (32.0-36.5); MEAN CORPUSCULAR VOLUME 90.6 fl (80.0-96.0); PLATELET COUNT, AUTOMATED 313 10^3/uL (150-450); RED BLOOD COUNT 3.29 10^6/uL (4.00-5.40); WHITE BLOOD COUNT 9.5 10^3/uL (4.0-10.0)
[2020-01-23 06:53] LABS: BLOOD UREA NITROGEN 10 MG/DL (7-18); CALCIUM LEVEL 8.3 MG/DL (8.8-10.2); CARBON DIOXIDE LEVEL 26 MEQ/L (21-32); CHLORIDE LEVEL 107 MEQ/L (98-107); CREATININE FOR GFR 0.54 MG/DL (0.55-1.30); GLOMERULAR FILTRATION RATE > 60.0 (>39); GLUCOSE, FASTING 105 MG/DL (70-100); POTASSIUM SERUM 3.2 MEQ/L (3.5-5.1); SODIUM LEVEL 140 MEQ/L (136-145)
[2020-01-23] MEDS: DOCUSATE SODIUM 100 MG CAP PO SCH (07:40)
[2020-01-23] MEDS: SUCRALFATE 1 GM TAB PO SCH (07:58)
[2020-01-23] MEDS: LACTOBACILLUS ACIDOPHILUS CAP (BACID) PO SCH (07:59)
[2020-01-23] MEDS: OMEPRAZOLE 20 MG CAP PO SCH (07:59)
[2020-01-23] MEDS ORDERED: POTASSIUM CHLORIDE 10 MEQ SR TABLET PO ONE ×2 (08:00→10:00)
--- NOTE | 2020-01-23 09:25 | IPNPDOC ---
Subjective Review oF Systems Chief Complaint The patient is a 69-year-old female admitted with a reason for visit of Renal Mass. Events since Last Encounter No acute events o/n. Patient notes that she feels a little better. Her a ppetite is a little better. Having mild nausea, but no emesis yesterday. She had 6 bms yesterday. She noted that the last one was more formed. Has minimal pain. No f/c/ns. Objective Physical Examination General Exam: Alert, Cooperative, No Acute Distress ABDOMEN EXAM: Soft, Other (incisions clean/dry/intact; LUCIUS w/ serous output) Skin Exam: Nl turgor and temperature Neuro Exam: Normal Speech Psych Exam: Mental status NL, Mood NL Vital Signs/I&O Vital Signs Date Time Temp Pulse Resp B/P (MAP) Pulse Ox O2 Delivery O2 Flow Rate FiO2 01/23/20 06:00 99.3 75 16 138/71 (93) 6 Room Air 01/18/20 17:30 2.0 I&O- Last 24 Hours up to 6 AM 01/23/20 05:59 Intake Total 2370 ml Output Total 2685 ml Balance -315 ml Laboratory Data Labs 24H Laboratory Tests 2 01/22/20 23:47: 01/23/20 06:21: Nucleated Red Blood Cells % (auto) 0.0, Anion Gap 7L, Glomerular Filtration Rate > 60.0, Calcium Level 8.3L CBC/BMP Laboratory Tests 01/23/20 06:21 Microbiology Microbiology 01/22/20 Stool Lactoferrin - Final, Complete 01/20/20 Blood Culture - Preliminary, Resulted No Growth after 48 hours. All Specime... 01/20/20 Blood Culture - Preliminary, Resulted No Growth after 48 hours. All Specime... Assessment/Plan Date Seen The patient was seen on 01/23/20. Patient Summary This is a 69 y/o F POD 5 s/p R robotic partial nephrectomy. Her Cr and Hb are stable. The LUCIUS Cr from yesterday was consistent w/ serum, ruling out a urine leak. We will remove the LUCIUS today. She is still having a lot of diarrhea. The hospitalist group is evaluating her for this. Plan/VTE VTE Prophylaxis Ordered?: Yes VTE Exclusion Mechanical Proph: N/A:VTE Prophy Ordered Plan - appreciate hospitalist service for evaluation and tx for diarrhea - d/c LUCIUS drain - cont home meds - tylenol prn pain - strict I/Os - encourage PO intake - regular diet - ok for discharge home once diarrhea improved or patient cleared from hospitalist service RACH CASTILLO MD Jan 23, 2020 09:25
--- NOTE | 2020-01-23 10:45 | IPNPDOC ---
Text Note Date of Service The patient was seen on 01/23/20. NOTE Subjective: He has seen and examined this morning. The drain was taken out this morning and she states she is feeling better Objective: GENERAL APPEARANCE: Well-nourished, well-developed, not in apparent distress HEENT: Normocephalic, atraumatic. Mucous members moist and pink CARDIOVASCULAR: Regular rate and rhythm. No murmurs, rubs or gallops. Radial pulses are intact. There is no lower extremity edema LUNGS: Diminished lung sounds ABDOMEN: Abdomen is soft, non-tender no rigidity MUSCULOSKELETAL: Range of motion is intact in all 4 extremities NEUROLOGICAL: Cranial nerves II-12 are grossly intact. Speech is not dysarthric ASSESSMENT/PLAN: Patient 69 years old female with past medical history of right nephrectomy, hypertension, acid reflux was admitted to the hospital for right nephrectomy secondary to right renal mass and is status post post operative day 5. Initially we were consulted for bradycardia, which is likely related to labetalol. We will again contacted as the patient was having persistent diarrhea. C. difficile was sent and came out to be negative, and this diarrhea could have been because of antibiotics for which the antibiotics were stopped. She was also started on probiotics 1. Renal mass, status post partial nephrectomy. Management as per urology 2. Diarrhea. This could be likely secondary to antibiotic associated diarrhea. the patient is on some probiotics and has been advised to continue the same. C. difficile PCR has been negative. Fecal leukocytes pending and ova and parasites negative In my opinion this time. He is functional because of the antibiotic use probiotics and avoiding dairy products will be the way to go. She needs to follow-up with PCP in 2 weeks and is medically cleared for discharge from medical standpoint. Rest, activity, pain control and diet as per urology The hospitalist team will continue to follow as far as the patient continues to be in the hospital VS,Fishbone, I+O VS, Fishbone, I+O Laboratory Tests 01/23/20 06:21 Vital Signs Date Time Temp Pulse Resp B/P (MAP) Pulse Ox O2 Delivery O2 Flow Rate FiO2 01/23/20 06:00 99.3 75 16 138/71 (93) 6 Room Air 01/18/20 17:30 2.0 I&O- Last 24 Hours up to 6 AM 01/23/20 06:00 Intake Total 2320 ml Output Total 2385 ml Balance -65 ml SAMANTHA KHANNA MD Jan 23, 2020 10:45
[2020-01-23] MEDS ORDERED: FLUCONAZOLE 100 MG TAB PO ONE (11:00)
[2020-01-23 11:15] LABS: MAGNESIUM LEVEL 2.1 MG/DL (1.8-2.4)
[2020-01-23] MEDS ORDERED: CVS1CAP2 PO (12:58)
[2020-01-23 14:00] VITALS: BP 143/78
--- NOTE | 2020-01-23 20:38 | DSES ---
DATE OF ADMISSION: 01/19/2020 DATE OF DISCHARGE: 01/23/2020 ADMISSION DIAGNOSIS: Right renal neoplasm. DISCHARGE DIAGNOSES: Right renal cell carcinoma, bradycardia, persistent emesis, persistent diarrhea. ADMITTING PHYSICIAN: Javan Sampson MD DISCHARGING PHYSICIAN: Javan Sampson MD PROCEDURE PERFORMED: Right robotic assisted laparoscopic partial nephrectomy on 01/18/2020. HISTORY OF PRESENT ILLNESS: This is a 69-year-old female who was found to have an enhancing right renal neoplasm on imaging. She went to the operating room on 01/18/2020 for removal of the mass. HOSPITALIZATION COURSE: Patient was admitted after undergoing the above-listed procedure on 01/18/2020. Of note, her surgery went without complications. While in the recovery room, she was noted to have an episode of bradycardia with a heart rate in the 40s. She was evaluated by the hospitalist service and all the workup was negative. It was assumed that her bradycardia was related to labetalol which she had received earlier in the day while in the operating room. She did not have any additional cardiac issues during her hospital stay. Throughout her hospital stay, her labs remained within acceptable limits. Her hemoglobin remained stable at around 10. Her creatinine remained stable at about 0.6 and she had good urine output. Of note, given the issue with her bradycardia in the recovery room she was not discharged home on postoperative day #1 as it was recommended that she be kept on cardiac monitoring for another day. She was therefore kept in the hospital and as of postoperative day #2, she started having nausea and vomiting and very poor by mouth intake. She therefore was not ready for discharge home. She also started having low grade fevers and a chest x-ray was obtained and it was unremarkable. Blood cultures were obtained and they were negative. She was started on Unasyn for fever of unknown cause. As of about postoperative day #3, the vomiting improved but she still had mild nausea and poor by mouth intake. She developed persistent diarrhea with about 5 or 6 stools a day. Clostridium (C) difficile panel was performed and it was negative. It was assumed that the diarrhea might have been triggered by the Unasyn and therefore that was stopped. The hospitalist group was re-consulted to evaluate her for the diarrhea and no infectious cause was identified. She was started on a probiotic and by postoperative day #5, her diarrhea had started to improve. Her appetite was also improving. Her Conrad Muse drain had been putting out moderate amounts of fluid and therefore a creatinine value was obtained on the fluid on postoperative day #4 and that was unremarkable. We therefore removed the Conrad Muse drain on postoperative day #5. By postoperative day #5, her appetite was improved, as well as her diarrhea. She was deemed ready for discharge home. She was discharged home with the plan for her to continue on probiotics and followup with her primary care doctor in case the diarrhea recurs. She will followup in the urology clinic in approximately 1 week to discuss the pathology results which demonstrated a renal cell carcinoma. FLETCHER
== END 2020-01-23 15:48 | disposition home or self-care (01) | DRG 657 ==
LOC: M SDC 05:53 → EDSTATUS 07:30 → M MSPAV 17:09 → M SDC 01-19 15:26 → M MSPAV 01-19 15:27 → OBSVTOIN 01-23 10:48 → UNDODISOB 01-23 15:48
PROVIDERS: ADMIT Urology; ATTEND Urology
PROC: 8E0W4CZ Robotic Assisted Procedure of Trunk Region, Percutaneous Endoscopic Approach (ICD-10-PCS; 2020-01-18)
PROC: 0TB Urinary System, Excision (ICD-10-PCS; principal; 2020-01-18 07:30)
DX: C64.1 Malignant neoplasm of right kidney, except renal pelvis (principal); K52.1 Toxic gastroenteritis and colitis; I10 Essential (primary) hypertension; K21.0 Gastro-esophageal reflux disease with esophagitis; R11.2 Nausea with vomiting, unspecified; R53.83 Other fatigue; R50.82 Postprocedural fever; K80.20 Calculus of gallbladder without cholecystitis without obstruction; K44.9 Diaphragmatic hernia without obstruction or gangrene; Z90.49 Acquired absence of other specified parts of digestive tract; Z98.49 Cataract extraction status, unspecified eye; Z90.710 Acquired absence of both cervix and uterus; R00.1 Bradycardia, unspecified; T44.8X5A Adverse effect of centrally-acting and adrenergic-neuron-blocking agents, initial encounter; Z79.899 Other long term (current) drug therapy; Z88.2 Allergy status to sulfonamides; T36.0X5A Adverse effect of penicillins, initial encounter

== ENCOUNTER → 2020-02-01 | Outpatient (REF) | payer MEDICARE, OTHER ==
[~2020-02-01] MED LIST changes: +CVS1CAP2 PO; +DOCU100C16 PO; +PERCOCET PO
[2020-02-01 12:30] LABS: HEMATOCRIT 35.4 % (36.0-47.0); HEMOGLOBIN 11.2 g/dl (12.0-15.5); MEAN CORPUSCULAR HEMOGLOBIN 29.6 pg (27.0-33.0); MEAN CORPUSCULAR HGB CONC 31.6 g/dl (32.0-36.5); MEAN CORPUSCULAR VOLUME 93.4 fl (80.0-96.0); PLATELET COUNT, AUTOMATED 677 10^3/uL (150-450); RED BLOOD COUNT 3.79 10^6/uL (4.00-5.40)
[2020-02-01 12:39] LABS: BLOOD UREA NITROGEN 9 MG/DL (7-18); CARBON DIOXIDE LEVEL 28 MEQ/L (21-32); CHLORIDE LEVEL 104 MEQ/L (98-107); CREATININE FOR GFR 0.65 MG/DL (0.55-1.30); GLOMERULAR FILTRATION RATE > 60.0 (>39); GLUCOSE, FASTING 105 MG/DL (70-100); POTASSIUM SERUM 4.7 MEQ/L (3.5-5.1); SODIUM LEVEL 139 MEQ/L (136-145)
== END ==
LOC: M LABSMT 09:31
PROVIDERS: ATTEND Urology
DX: C64.1 Malignant neoplasm of right kidney, except renal pelvis (principal)

== ENCOUNTER 2020-07-18 10:32 | Day surgery (SDC) | payer MEDICARE, BC, OTHER ==
[~2020-07-18] VITALS: Ht 154.9 cm; Wt 67.0 kg
[~2020-07-18 10:32] MED LIST changes: -ASPI81TA85 PO; +ASPI81TA86 PO
[2020-07-18] MEDS ORDERED: NS 1,000 ML IV ONE (10:45)
[2020-07-18] MEDS ORDERED: propofoL 200 MG/20 ML VIAL As Ordered ONE ×2 (11:26→12:18)
[2020-07-18 12:00] VITALS: BP 135/58
--- NOTE | 2020-08-07 11:29 | ROOR ---
Patient Name: Dee Valderrama Procedure Date: 07/18/2020 11:00 AM Date of : 1950 Age: 70 Room: [facility] Gender: Female Note Status: Finalized Procedure: Colonoscopy Indications: Screening for colorectal malignant neoplasm Providers: Colby Prieto Jr, MD Referring MD: Chelly Bishop DO Requesting Provider: Medicines: Propofol per Anesthesia Complications: No immediate complications. Procedure: Pre-Anesthesia Assessment: - Prior to the procedure, a History and Physical was performed, and patient medications and allergies were reviewed. The patient is competent. The risks and benefits of the procedure and the sedation options and risks were discussed with the patient. All questions were answered and informed consent was obtained. Patient identification and proposed procedure were verified by the physician and the nurse in the pre-procedure area and in the procedure room. Mental Status Examination: alert and oriented. Airway Examination: normal oropharyngeal airway and neck mobility. Respiratory Examination: clear to auscultation. CV Examination: normal. ASA Grade Assessment: II - A patient with mild systemic disease. After reviewing the risks and benefits, the patient was deemed in satisfactory condition to undergo the procedure. The anesthesia plan was to use moderate sedation / analgesia (conscious sedation). Immediately prior to administration of medications, the patient was re-assessed for adequacy to receive sedatives. The heart rate, respiratory rate, oxygen saturations, blood pressure, adequacy of pulmonary ventilation, and response to care were monitored throughout the procedure. The physical status of the patient was re-assessed after the procedure. The Colonoscope was introduced through the anus and advanced to the cecum, identified by appendiceal orifice and ileocecal valve. The colonoscopy was performed without difficulty. The patient tolerated the procedure well. The quality of the bowel preparation was adequate. Findings: The rectum, recto-sigmoid colon, descending colon, transverse colon, ascending colon, cecum, appendiceal orifice and ileocecal valve appeared normal. Multiple small and large-mouthed diverticula were found in the sigmoid colon. Impression: - The rectum, recto-sigmoid colon, descending colon, transverse colon, ascending colon, cecum, appendiceal orifice and ileocecal valve are normal. - Diverticulosis in the sigmoid colon. - No specimens collected. Recommendation: - Discharge patient to home (ambulatory). - Repeat colonoscopy in 10 years for screening purposes. Colby Prieto MD Colby Prieto Jr, MD 07/18/2020 11:40:45 AM Electronically signed by Colby Prieto Jr, MD Number of Addenda: 0 Note Initiated On: 07/18/2020 11:00 AM Estimated Blood Loss: Estimated blood loss: none.
== END 2020-07-18 12:35 | disposition home or self-care (01) ==
LOC: M OPP 10:32
PROVIDERS: ATTEND Surgery
DX: Z12.11 Encounter for screening for malignant neoplasm of colon (principal); K57.30 Diverticulosis of large intestine without perforation or abscess without bleeding; Z79.899 Other long term (current) drug therapy; Z88.2 Allergy status to sulfonamides; Z85.528 Personal history of other malignant neoplasm of kidney

== ENCOUNTER → 2020-09-23 | Outpatient (CLI) | payer MEDICARE, BC, OTHER ==
[~2020-09-23] MED LIST changes: +ISOVUE-370 76% 100ML VIAL As Ordered ONE
--- NOTE | 2020-09-23 11:36 | REP ---
INDICATION: RENAL CELL CAXR1,CT2 COMPARISON: 01/20/2020 and 06/06/2018. TECHNIQUE: PA/Lateral FINDINGS: The heart is normal in size. There is no hilar or mediastinal adenopathy. The lungs are clear. The pleural angles are unremarkable. Bones and soft tissues are unremarkable. IMPRESSION: No acute pulmonary disease. <Electronically signed by Jon Coronado > 09/23/20 [id number]
--- NOTE | 2020-09-23 13:48 | REP ---
INDICATION: RENAL CELL CAXR1,CT2 COMPARISON: 11/13/2019. TECHNIQUE: CT Scan of the abdomen was performed with intravenous administration of 100 cc of Isovue 370, without oral contrast. FINDINGS: Lung bases: Unremarkable. Small hiatal hernia. Liver: Normal Gallbladder: Multiple subcentimeter stones, no evidence of gallbladder wall thickening or edema, no biliary dilatation.. Spleen: Normal. Adrenals: Normal. Pancreas: Normal. Kidneys: Since the prior exam there has been a partial nephrectomy of the upper pole of the right kidney. There is no recurrent mass identified on today's exam. Left kidney is unremarkable and unchanged. Small and large bowel: Multiple colonic diverticula, without evidence of acute diverticulitis.. Free fluid: None. Abdominal aorta: No aneurysm or dissection. Adenopathy: None. Osseous structures: Mild degenerative changes of the spine. No compression deformity.. IMPRESSION: Partial nephrectomy upper pole right kidney. No recurrent mass. No adenopathy. Multiple gallstones in the gallbladder without gallbladder wall thickening or edema. Multiple colonic diverticula without evidence of diverticulitis. <Electronically signed by Jon Coronado > 09/23/20 [id number]
== END ==
LOC: M RAD 09:52
PROVIDERS: ATTEND Urology
DX: K80.20 Calculus of gallbladder without cholecystitis without obstruction (principal); C64.1 Malignant neoplasm of right kidney, except renal pelvis; Z90.5 Acquired absence of kidney
CPT/HCPCS: 71046; 74160; Q9967

== ENCOUNTER → 2021-09-22 | Outpatient (CLI) | payer MEDICARE, BC, OTHER ==
[~2021-09-22] MED LIST changes: -ISOVUE-370 76% 100ML VIAL As Ordered ONE; -LISI-542 PO; +LISI-898 PO
[2021-09-22 14:15] LABS: BLOOD UREA NITROGEN 10 MG/DL (7-18); CALCIUM LEVEL 9.9 MG/DL (8.8-10.2); CARBON DIOXIDE LEVEL 30 MEQ/L (21-32); CHLORIDE LEVEL 109 MEQ/L (98-107); CREATININE FOR GFR 0.61 MG/DL (0.55-1.30); GLOMERULAR FILTRATION RATE > 60.0 (>39); GLUCOSE, FASTING 102 MG/DL (70-100); POTASSIUM SERUM 4.4 MEQ/L (3.5-5.1); SODIUM LEVEL 143 MEQ/L (136-145)
== END ==
LOC: M PLALAB 10:51
PROVIDERS: ATTEND Urology
DX: C64.1 Malignant neoplasm of right kidney, except renal pelvis (principal)

== ENCOUNTER → 2021-09-29 | Outpatient (CLI) | payer MEDICARE, BC, OTHER ==
[~2021-09-29] MED LIST changes: +ISOVUE-370 76% 100ML VIAL As Ordered ONE
--- NOTE | 2021-09-29 13:39 | REP ---
INDICATION: RENAL CELL CA-CT AFTER. COMPARISON: 09/23/2020 FINDINGS: The superior mediastinal structures are midline. The cardiac silhouette is unremarkable in size, shape, and position. The diaphragmatic surfaces of the lungs are regular, and the costophrenic angles are clear. The pulmonary lopes are clear. The imaged osseous structures are intact. IMPRESSION: There is no acute cardiopulmonary disease. <Electronically signed by Erik Eldridge > 09/29/21 [id number]
--- NOTE | 2021-09-29 16:56 | REP ---
INDICATION: RENAL CELL CA-XRAY FIRST. COMPARISON: Multiple the latest 09/23/2020 TECHNIQUE: Standard helical technique after the intravenous administration of 100 cc Isovue 370 FINDINGS: The lung bases are clear and unchanged. The liver, gallbladder, spleen, pancreas, adrenal glands, and kidneys are unchanged. Note is again made of partial right nephrectomy with right upper pole scarring status quo. Note is again made of cholelithiasis. The abdominal aorta and para aortic regions are unchanged. No adenopathy has developed. There is no significant change in appearance of the bowel loops or the mesenteries. No mass or adenopathy has developed. There is no free fluid or free air. There is colonic diverticulosis status quo. Bone window technique throughout the examination shows the osseous structures to be stable and intact. IMPRESSION: There is no evidence of acute disease or significant change compared to the prior exam with findings as described above. <Electronically signed by Erik Eldridge > 09/29/21 [id number]
== END ==
LOC: M RAD 12:30
PROVIDERS: ATTEND Urology
DX: C64.1 Malignant neoplasm of right kidney, except renal pelvis (principal)
CPT/HCPCS: 71046; 74160; Q9967

== ENCOUNTER → 2022-04-17 | Outpatient (CLI) | payer MEDICARE, BC, OTHER ==
[~2022-04-17] MED LIST changes: +E-Z-GAS II EFFERVESCENT PACKET (SODIUM BICARB./CITRIC ACID/SIMETHICONE) As Ordered ONE; +E-Z-HD 98% w/w 340GM SUSP BTL As Ordered ONE; +E-Z-PAQUE 96% w/w SUSP 176GM BTL As Ordered ONE; -ISOVUE-370 76% 100ML VIAL As Ordered ONE; -LISI-898 PO; +LISI5TAB11 PO
== END ==
LOC: M RAD 08:36
PROVIDERS: ATTEND Surgery
DX: K44.9 Diaphragmatic hernia without obstruction or gangrene (principal); K31.7 Polyp of stomach and duodenum

== ENCOUNTER → 2022-07-20 | Outpatient (REF) | payer MEDICARE, OTHER ==
[~2022-07-20] MED LIST changes: -E-Z-GAS II EFFERVESCENT PACKET (SODIUM BICARB./CITRIC ACID/SIMETHICONE) As Ordered ONE; -E-Z-HD 98% w/w 340GM SUSP BTL As Ordered ONE; -E-Z-PAQUE 96% w/w SUSP 176GM BTL As Ordered ONE
== END ==
LOC: M LAB REF 17:42
PROVIDERS: ATTEND Internal Medicine Endocrinology, Diabetes & Metabolism
DX: E04.1 Nontoxic single thyroid nodule (principal)

== ENCOUNTER → 2022-08-05 | Outpatient (REF) | payer MEDICARE, OTHER | LOC: M LAB REF 17:16 | PROVIDERS: ATTEND Surgery | DX: L82.1 Other seborrheic keratosis (principal) ==

== ENCOUNTER → 2022-08-27 | Outpatient (CLI) | payer MEDICARE, BC, OTHER | LOC: M CARPUL 09:59 | PROVIDERS: ATTEND Family Medicine | DX: I35.0 Nonrheumatic aortic (valve) stenosis (principal) ==

== ENCOUNTER → 2022-10-19 | Outpatient (CLI) | payer MEDICARE, BC, OTHER ==
[~2022-10-19] MED LIST changes: +ISOVUE-370 76% 100ML VIAL As Ordered ONE
== END ==
LOC: M RAD 09:34
PROVIDERS: ATTEND Urology
DX: C64.1 Malignant neoplasm of right kidney, except renal pelvis (principal)
CPT/HCPCS: 74170; Q9967

== ENCOUNTER → 2023-10-20 | Outpatient (CLI) | payer MEDICARE, BC, OTHER ==
[~2023-10-20] MED LIST changes: -ISOVUE-370 76% 100ML VIAL As Ordered ONE
[2023-10-20 13:58] LABS: BLOOD UREA NITROGEN 15 MG/DL (9-23); CALCIUM LEVEL 9.4 MG/DL (8.3-10.6); CARBON DIOXIDE LEVEL 31 MMOL/L (20-31); CHLORIDE LEVEL 106 MMOL/L (98-107); CREATININE FOR GFR 0.63 MG/DL (0.55-1.30); GLOMERULAR FILTRATION RATE > 60.0 (>39); GLUCOSE, FASTING 108 MG/DL (74-106); POTASSIUM SERUM 4.7 MMOL/L (3.5-5.1); SODIUM LEVEL 143 MMOL/L (136-145)
== END ==
LOC: M PLALAB 11:37
PROVIDERS: ATTEND Urology
DX: C64.1 Malignant neoplasm of right kidney, except renal pelvis (principal)

== ENCOUNTER → 2023-11-01 | Outpatient (CLI) | payer MEDICARE, BC, OTHER ==
[~2023-11-01] MED LIST changes: +ISOVUE-370 76% 100ML VIAL ONE
== END ==
LOC: M PLAIMG 13:04
PROVIDERS: ATTEND Urology
DX: C64.1 Malignant neoplasm of right kidney, except renal pelvis (principal)
CPT/HCPCS: 74170; Q9967

== ENCOUNTER → 2024-10-30 | Outpatient (CLI) | payer MEDICARE, BC ==
[~2024-10-30] MED LIST changes: -ISOVUE-370 76% 100ML VIAL ONE
[2024-10-30 14:42] LABS: BLOOD UREA NITROGEN 13 MG/DL (9-23); CARBON DIOXIDE LEVEL 31 MMOL/L (20-31); CHLORIDE LEVEL 107 MMOL/L (98-107); GLOMERULAR FILTRATION RATE > 60.0 (>39); GLUCOSE, FASTING 103 MG/DL (74-106); POTASSIUM SERUM 4.2 MMOL/L (3.5-5.1); SODIUM LEVEL 142 MMOL/L (136-145)
== END ==
LOC: M RAD 12:40
PROVIDERS: ATTEND Urology
DX: C64.1 Malignant neoplasm of right kidney, except renal pelvis (principal)

== ENCOUNTER → 2024-11-02 | Outpatient (CLI) | payer MEDICARE, BC ==
[~2024-11-02] MED LIST changes: +ISOVUE-370 76% 100ML VIAL As Ordered ONE
== END ==
LOC: M RAD 12:34
PROVIDERS: ATTEND Urology
DX: C64.1 Malignant neoplasm of right kidney, except renal pelvis (principal)
CPT/HCPCS: 74170; Q9967

== ENCOUNTER 2025-04-04 21:17 | Emergency (ER) | payer MEDICARE, BC ==
[~2025-04-04] VITALS: Ht 154.9 cm; Wt 67.7 kg
[~2025-04-04 21:17] MED LIST changes: -ISOVUE-370 76% 100ML VIAL As Ordered ONE
[2025-04-05] MEDS: ACETAMINOPHEN 500 MG TAB PO ONE (01:04)
[2025-04-05] MEDS: NORCO 5/325MG TABLET (HOME DOSE PACK) PO ONE (02:55)
[2025-04-05 03:29] VITALS: BP 156/76; TEMP 98.3; O2SAT 99
== END 2025-04-05 03:33 | disposition home or self-care (01) ==
LOC: M ED 21:17
DX: S42.292A Other displaced fracture of upper end of left humerus, initial encounter for closed fracture (principal); S00.83XA Contusion of other part of head, initial encounter; Y92.019 Unspecified place in single-family (private) house as the place of occurrence of the external cause; Y93.9 Activity, unspecified; Y99.9 Unspecified external cause status; W19.XXXA Unspecified fall, initial encounter; I10 Essential (primary) hypertension; K21.9 Gastro-esophageal reflux disease without esophagitis; Z88.2 Allergy status to sulfonamides; Z79.899 Other long term (current) drug therapy

== ENCOUNTER → 2025-04-11 | Outpatient (CLI) | payer MEDICARE, BC | LOC: M SOG 06:51 | PROVIDERS: ATTEND Orthopaedic Surgery | DX: M25.512 Pain in left shoulder (principal) ==

== ENCOUNTER → 2025-06-08 | Outpatient (CLI) | payer MEDICARE, BC | LOC: M SOG 07:27 | PROVIDERS: ATTEND Orthopaedic Surgery | DX: S42.212D Unspecified displaced fracture of surgical neck of left humerus, subsequent encounter for fracture with routine healing (principal); M25.512 Pain in left shoulder; W18.30XD Fall on same level, unspecified, subsequent encounter ==

== ENCOUNTER → 2025-09-11 | Outpatient (CLI) | payer MEDICARE, BC | LOC: M SOG 07:28 | PROVIDERS: ATTEND Orthopaedic Surgery | DX: M25.512 Pain in left shoulder (principal); S42.212D Unspecified displaced fracture of surgical neck of left humerus, subsequent encounter for fracture with routine healing; W18.30XA Fall on same level, unspecified, initial encounter; Y92.009 Unspecified place in unspecified non-institutional (private) residence as the place of occurrence of the external cause ==

== ENCOUNTER → 2025-10-29 | Outpatient (CLI) | payer MEDICARE, BC ==
[2025-10-29 12:56] LABS: CALCIUM LEVEL 9.4 MG/DL (8.3-10.6); CARBON DIOXIDE LEVEL 30.0 MMOL/L (20-31); CHLORIDE LEVEL 103.0 MMOL/L (98-107); CREATININE FOR GFR 0.75 MG/DL (0.55-1.30); GLOMERULAR FILTRATION RATE 82.5 (>39); POTASSIUM SERUM 4.2 MMOL/L (3.5-5.1); SODIUM LEVEL 143.0 MMOL/L (136-145)
== END ==
LOC: M LAB 11:07 → M RAD 11:07
PROVIDERS: ATTEND Urology
DX: C64.1 Malignant neoplasm of right kidney, except renal pelvis (principal)

== ENCOUNTER → 2025-10-31 | Outpatient (CLI) | payer MEDICARE, BC ==
[~2025-10-31] MED LIST changes: +ISOVUE-370 76% 100 ML VIAL As Ordered ONE
== END ==
LOC: M RAD 11:12
PROVIDERS: ATTEND Urology
DX: C64.1 Malignant neoplasm of right kidney, except renal pelvis (principal); K80.80 Other cholelithiasis without obstruction
CPT/HCPCS: 74170; Q9967